=== PATIENT | male | born 1930 | race Caucasian/White ===

== ENCOUNTER 2020-05-26 18:56 | Inpatient (IN) | payer OTHER ==
[2020-05-26] MEDS ORDERED: SODIUM CHLORIDE 0.9% 500 ML INFUS.BAG IV ONE (19:20)
[2020-05-26] MEDS ORDERED: ACETAMINOPHEN 1000 MG/100 ML BAG IVPB ONE (19:20)
[2020-05-26] MEDS ORDERED: ACETAMINOPHEN INJECTION 100 ML IVPB ONE (19:40)
[2020-05-26 19:57] LABS: VENOUS BASE EXCESS 0.3 mmol/L (-2-2); VENOUS O2 SATURATION 88.5 % (70-80); VENOUS PCO2 33.7 mmHg (38-52); VENOUS PH 7.46 (7.310-7.410)
[2020-05-26 19:59] LABS: BASO % 0.3 % (0-2.0); EOS % 0.1 % (0-4.5); HEMATOCRIT 39.7 % (35.4-49); LYMPH % 17.5 % (8-40); MCH 28.8 pg (25.7-33.7); MCHC 32.7 g/dl (32.0-35.9); MEAN CELL VOLUME 88.1 fl (80-96); MEAN PLT VOLUME 9.9 fl (7.5-11.1); MONO % 10.6 % (3.8-10.2); NEUT % 71.5 % (42.8-82.8); PLATELET COUNT 133 K/MM3 (134-434); RBC 4.51 M/mm3 (4.00-5.60); WHITE BLOOD COUNT 5.2 K/mm3 (4.0-10.0)
[2020-05-26] MEDS ORDERED: CEFTRIAXONE 1 GM in DEXTROSE 5%-WATER - 100 ML IVPB ONE (19:59)
[2020-05-26] MEDS ORDERED: DEXAMETHASONE SOD PHOSPHATE 10 MG/1 ML VIAL IVPUSH ONE (19:59)
[2020-05-26] MEDS ORDERED: AZITHROMYCIN IVPB 500 MG in DEXTROSE 5%-WATER - 250 ML IVPB ONE (19:59)
[2020-05-26 20:06] LABS: INR 1.47 (0.83-1.09); PROTHROMBIN TIME (PATIENT) 17.9 SEC (9.7-13.0)
[2020-05-26] MEDS ORDERED: CEFTRIAXONE 1 GM/50 ML BAG ONE (20:08)
[2020-05-26] MEDS ORDERED: DEXAMETHASONE SOD PHOSPHATE 10 MG/1 ML VIAL ONE (20:08)
[2020-05-26 20:09] LABS: ACTIVATED PTT 36.5 SECONDS (25.2-36.5)
[2020-05-26] MEDS ORDERED: METOCLOPRAMIDE HCL INJECTION 10 MG/2 ML VIAL IVPUSH ONE (20:24)
[2020-05-26] MEDS ORDERED: dilTIAZem HCL 50 MG/10 ML - 10 ML VIAL IVPUSH ONE (20:24)
[2020-05-26 20:26] LABS: CALCIUM 7.7 mg/dL (8.5-10.1)
[2020-05-26 20:27] LABS: ALBUMIN 2.8 g/dl (3.4-5.0); BLOOD UREA NITROGEN 31.2 mg/dL (7-18)
[2020-05-26 20:29] LABS: BILIRUBIN,DIRECT 0.1 mg/dL (0.0-0.2); CREATININE 1.7 mg/dL (0.55-1.3)
[2020-05-26 20:31] LABS: BILIRUBIN,TOTAL 0.5 mg/dL (0.2-1)
[2020-05-26 20:32] LABS: TOT PROT 6.8 g/dl (6.4-8.2)
[2020-05-26] MEDS ORDERED: METOCLOPRAMIDE HCL INJECTION 10 MG/2 ML VIAL ONE (20:33)
[2020-05-26] MEDS ORDERED: dilTIAZem HCL 125 MG/25 ML - 25 ML VIAL ONE (20:33)
[2020-05-26] MEDS ORDERED: AZITHROMYCIN IVPB 500 MG/250 ML BAG IVPB ONE (20:55)
[2020-05-26 21:41] LABS: EPI CELLS 7 /uL (0-25.1); HYALINE CASTS 4 /uL (0-3.1); URINE APPEARANCE CLOUDY; URINE BACTERIA 15 /uL (0-1359); URINE BILIRUBIN NEGATIVE (NEGATIVE); URINE COLOR YELLOW; URINE GLUCOSE (UA) 2+ (NEGATIVE); URINE KETONE TRACE (NEGATIVE); URINE LEUK ESTERASE NEGATIVE (NEGATIVE); URINE NITRITE NEGATIVE (NEGATIVE); URINE PROTEIN 2+ (NEGATIVE); URINE RBC 12 /uL (0-23.9); URINE UROBILINOGEN 0.2 mg/dL (0.2-1.0); URINE WBC 6 /uL (0-25.8)
[2020-05-26 22:42] LABS: BLOOD UREA NITROGEN 33.1 mg/dL (7-18); CALCIUM 7.6 mg/dL (8.5-10.1)
[2020-05-26 22:46] LABS: CREATININE 1.6 mg/dL (0.55-1.3)
[2020-05-27] MEDS ORDERED: SODIUM CHLORIDE 500 ML IV STA (00:53)
[2020-05-27] MEDS: SODIUM CHLORIDE 1,000 ML IV SCH ×2 (02:42→13:02)
[2020-05-27 03:23] VITALS: BMI 24.7
[2020-05-27] MEDS: METOPROLOL TARTRATE 5 MG/5 ML VIAL IVPUSH PRN (04:17)
[2020-05-27] MEDS: INSULIN SLIDING SCALE (NOVOLOG) 1 VIAL SQ SCH ×4 (06:36→22:15)
[2020-05-27 06:44] LABS: BASO % 0.1 % (0-2.0); HEMOGLOBIN 14.5 GM/dL (11.7-16.9); LYMPH % 21.9 % (8-40); MCH 29.3 pg (25.7-33.7); MCHC 32.9 g/dl (32.0-35.9); MEAN PLT VOLUME 9.6 fl (7.5-11.1); PLATELET COUNT 141 K/MM3 (134-434); RBC 4.95 M/mm3 (4.00-5.60); RDW 14.3 % (11.9-15.9); WHITE BLOOD COUNT 4.5 K/mm3 (4.0-10.0)
[2020-05-27 06:57] LABS: CALCIUM 8.2 mg/dL (8.5-10.1)
[2020-05-27 06:58] LABS: ALBUMIN 2.8 g/dl (3.4-5.0); BLOOD UREA NITROGEN 34.2 mg/dL (7-18); MAGNESIUM 1.9 mg/dL (1.8-2.4)
[2020-05-27 07:01] LABS: CREATININE 1.6 mg/dL (0.55-1.3); PHOSPHOROUS 5.2 mg/dL (2.5-4.9)
[2020-05-27 07:03] LABS: BILIRUBIN,TOTAL 0.6 mg/dL (0.2-1)
[2020-05-27] MEDS ORDERED: CALCIUM GLUCONATE 10% - 1,000 MG/10 ML VIAL IVPB ONE (08:33)
[2020-05-27] MEDS ORDERED: INSULIN REGULAR HUMAN 100 UNITS/ML *VIAL IVPUSH ONE (08:34)
[2020-05-27] MEDS ORDERED: DEXTROSE 50%-WATER - 25 GM/50 ML VIAL IVPUSH ONE (08:34)
[2020-05-27] MEDS ORDERED: DEXTROSE 5%-WATER - 50 ML IVPB ONE (09:40)
[2020-05-27] MEDS ORDERED: cefTRIAXone SODIUM 1 GM VIAL ONE (09:40)
[2020-05-27] MEDS ORDERED: DEXTROSE 50%-WATER - 25 GM/50 ML VIAL ONE (09:47)
[2020-05-27] MEDS ORDERED: DEXAMETHASONE SOD PHOSPHATE 4 MG/1 ML VIAL IVPUSH ONE (10:00)
[2020-05-27] MEDS: CHOLECALCIFEROL (VIT D3) 5000 UNITS (125 MCG) CAP PO SCH (10:10)
[2020-05-27] MEDS: APIXABAN 2.5 MG TABLET PO SCH ×2 (10:11→22:07)
[2020-05-27] MEDS: ZINC SULFATE 220 MG CAPSULE (FP) PO SCH ×2 (10:11→22:08)
[2020-05-27] MEDS: ASCORBIC ACID 500 MG TABLET (FP) PO SCH ×2 (10:11→22:07)
[2020-05-27] MEDS: CEFTRIAXONE 1 GM in DEXTROSE 5%-WATER - 50 ML IVPB SCH (10:14)
[2020-05-27] MEDS ORDERED: NITROGLYCERIN SUBLINGUAL 1/150 0.4 MG TAB SL PRN (11:46)
[2020-05-27] MEDS: FAMOTIDINE 20 MG/50 ML IVPB 20 MG/50 ML MG IVPB SCH (12:06)
[2020-05-27] MEDS: amLODIPine BESYLATE 5 MG TABLET (FP) PO SCH (12:21)
[2020-05-27] MEDS: metoPROLOL SUCCINATE 25 MG TAB.SR.24H (FP) PO SCH (12:21)
[2020-05-27] MEDS: AZITHROMYCIN IVPB 250 MG in DEXTROSE 5%-WATER - 250 ML IVPB SCH (13:05)
[2020-05-27] MEDS ORDERED: PT OWN MED DRAWER 7, Y5N ONE (14:44)
[2020-05-27] MEDS: SODIUM ZIRCONIUM CYCLOSILICATE (LOKELMA) 5 GM PACKET PO SCH (14:51)
[2020-05-27] MEDS ORDERED: REMDESIVIR 200 MG in SODIUM CHLORIDE 210 ML IVPB ONE (17:00)
[2020-05-27 19:47] LABS: CALCIUM 7.8 mg/dL (8.5-10.1)
[2020-05-27 19:48] LABS: BLOOD UREA NITROGEN 37.6 mg/dL (7-18)
[2020-05-27 19:51] LABS: CREATININE 1.4 mg/dL (0.55-1.3)
[2020-05-27] MEDS: ATORVASTATIN CA 40 MG TABLET (FP) PO SCH (22:08)
[2020-05-28] MEDS: INSULIN SLIDING SCALE (NOVOLOG) 1 VIAL SQ SCH ×4 (06:40→22:19)
[2020-05-28] MEDS: SODIUM CHLORIDE 1,000 ML IV SCH (06:40)
[2020-05-28 08:41] LABS: BASO % 0.1 % (0-2.0); HEMATOCRIT 40.4 % (35.4-49); HEMOGLOBIN 13.1 GM/dL (11.7-16.9); LYMPH % 6.1 % (8-40); MCH 28.6 pg (25.7-33.7); MCHC 32.4 g/dl (32.0-35.9); MEAN CELL VOLUME 88.4 fl (80-96); MONO % 5.1 % (3.8-10.2); NEUT % 88.7 % (42.8-82.8); PLATELET COUNT 158 K/MM3 (134-434); RBC 4.57 M/mm3 (4.00-5.60); RDW 14.1 % (11.9-15.9); WHITE BLOOD COUNT 12.9 K/mm3 (4.0-10.0)
[2020-05-28 08:43] LABS: CALCIUM 8.4 mg/dL (8.5-10.1)
[2020-05-28 08:44] LABS: ALBUMIN 2.7 g/dl (3.4-5.0); BLOOD UREA NITROGEN 34.2 mg/dL (7-18)
[2020-05-28 08:48] LABS: CREATININE 1.4 mg/dL (0.55-1.3); PHOSPHOROUS 3.6 mg/dL (2.5-4.9)
[2020-05-28 08:49] LABS: BILIRUBIN,TOTAL 0.3 mg/dL (0.2-1); TOT PROT 6.9 g/dl (6.4-8.2)
[2020-05-28] MEDS ORDERED: DEXTROSE 5%-WATER - 50 ML IVPB ONE (10:08)
[2020-05-28] MEDS ORDERED: cefTRIAXone SODIUM 1 GM VIAL ONE (10:08)
[2020-05-28] MEDS ORDERED: PT OWN MED DRAWER 7, Y5N ONE (10:08)
[2020-05-28] MEDS: ASPIRIN 81 MG CHEWABLE TABLETS PO SCH (10:30)
[2020-05-28] MEDS: amLODIPine BESYLATE 5 MG TABLET (FP) PO SCH (10:30)
[2020-05-28] MEDS: CEFTRIAXONE 1 GM in DEXTROSE 5%-WATER - 50 ML IVPB SCH (10:30)
[2020-05-28] MEDS: ZINC SULFATE 220 MG CAPSULE (FP) PO SCH ×2 (10:30→22:19)
[2020-05-28] MEDS: FAMOTIDINE 20 MG/50 ML IVPB 20 MG/50 ML MG IVPB SCH (10:30)
[2020-05-28] MEDS: DEXAMETHASONE SOD PHOSPHATE 4 MG/1 ML VIAL IVPUSH SCH (10:30)
[2020-05-28] MEDS: ASCORBIC ACID 500 MG TABLET (FP) PO SCH ×2 (10:30→22:19)
[2020-05-28] MEDS: APIXABAN 2.5 MG TABLET PO SCH ×2 (10:30→22:19)
[2020-05-28] MEDS: CHOLECALCIFEROL (VIT D3) 5000 UNITS (125 MCG) CAP PO SCH (10:30)
[2020-05-28] MEDS: SODIUM ZIRCONIUM CYCLOSILICATE (LOKELMA) 5 GM PACKET PO SCH (10:30)
[2020-05-28] MEDS: metoPROLOL SUCCINATE 25 MG TAB.SR.24H (FP) PO SCH (10:30)
[2020-05-28] MEDS: AZITHROMYCIN IVPB 250 MG in DEXTROSE 5%-WATER - 250 ML IVPB SCH (12:00)
[2020-05-28] MEDS: REMDESIVIR 100 MG in SODIUM CHLORIDE 230 ML IVPB SCH (16:43)
[2020-05-28] MEDS: ATORVASTATIN CA 40 MG TABLET (FP) PO SCH (22:19)
[2020-05-29 06:34] LABS: HEMATOCRIT 43.6 % (35.4-49); HEMOGLOBIN 14.2 GM/dL (11.7-16.9); LYMPH % 5.2 % (8-40); MCH 28.8 pg (25.7-33.7); MCHC 32.4 g/dl (32.0-35.9); MEAN CELL VOLUME 88.7 fl (80-96); MONO % 6.5 % (3.8-10.2); NEUT % 88.3 % (42.8-82.8); PLATELET COUNT 199 K/MM3 (134-434); RBC 4.92 M/mm3 (4.00-5.60); RDW 14.1 % (11.9-15.9); WHITE BLOOD COUNT 14.5 K/mm3 (4.0-10.0)
[2020-05-29 06:55] LABS: CALCIUM 8.4 mg/dL (8.5-10.1)
[2020-05-29 06:57] LABS: BLOOD UREA NITROGEN 42.6 mg/dL (7-18)
[2020-05-29] MEDS: INSULIN SLIDING SCALE (NOVOLOG) 1 VIAL SQ SCH ×4 (06:59→22:59)
[2020-05-29 07:01] LABS: CREATININE 1.4 mg/dL (0.55-1.3)
[2020-05-29] MEDS ORDERED: ALBUTEROL SO4 HFA INHALER IH PRN (10:40)
[2020-05-29] MEDS ORDERED: APIXABAN 2.5 MG TABLET PO SCH ×2 (10:48→22:00)
[2020-05-29] MEDS: ASCORBIC ACID 500 MG TABLET (FP) PO SCH ×2 (10:50→22:58)
[2020-05-29] MEDS: amLODIPine BESYLATE 5 MG TABLET (FP) PO SCH (10:50)
[2020-05-29] MEDS: ZINC SULFATE 220 MG CAPSULE (FP) PO SCH ×2 (10:50→22:58)
[2020-05-29] MEDS: metoPROLOL SUCCINATE 25 MG TAB.SR.24H (FP) PO SCH (10:51)
[2020-05-29] MEDS: ASPIRIN 81 MG CHEWABLE TABLETS PO SCH (10:51)
[2020-05-29] MEDS: APIXABAN 2.5 MG TABLET PO SCH (10:51)
[2020-05-29] MEDS ORDERED: PT OWN MED DRAWER 7, Y5N ONE (11:02)
[2020-05-29] MEDS: CHOLECALCIFEROL (VIT D3) 5000 UNITS (125 MCG) CAP PO SCH (11:02)
[2020-05-29] MEDS: CEFTRIAXONE 1 GM in DEXTROSE 5%-WATER - 50 ML IVPB SCH (11:30)
[2020-05-29] MEDS: DEXAMETHASONE SOD PHOSPHATE 4 MG/1 ML VIAL IVPUSH SCH (11:30)
[2020-05-29] MEDS: SODIUM CHLORIDE 1,000 ML IV SCH (11:30)
[2020-05-29] MEDS ORDERED: DEXTROSE 5%-WATER - 50 ML IVPB ONE (11:54)
[2020-05-29] MEDS ORDERED: cefTRIAXone SODIUM 1 GM VIAL ONE (11:54)
[2020-05-29] MEDS: FAMOTIDINE 20 MG/50 ML IVPB 20 MG/50 ML MG IVPB SCH (11:58)
[2020-05-29] MEDS: AZITHROMYCIN IVPB 250 MG in DEXTROSE 5%-WATER - 250 ML IVPB SCH (13:19)
[2020-05-29] MEDS: SODIUM ZIRCONIUM CYCLOSILICATE (LOKELMA) 5 GM PACKET PO SCH (13:19)
[2020-05-29] MEDS: REMDESIVIR 100 MG in SODIUM CHLORIDE 230 ML IVPB SCH (16:57)
[2020-05-29] MEDS ORDERED: DEXAMETHASONE SOD PHOSPHATE 4 MG/1 ML VIAL IVPUSH ONE (20:00)
[2020-05-29] MEDS ORDERED: MELATONIN 5 MG TABLETS PO ONE (22:00)
[2020-05-29] MEDS: ATORVASTATIN CA 40 MG TABLET (FP) PO SCH (22:58)
[2020-05-29] MEDS: APIXABAN 5 MG TABLET PO SCH (22:58)
[2020-05-30] MEDS: METOPROLOL TARTRATE 5 MG/5 ML VIAL IVPUSH PRN ×3 (00:49→16:11)
[2020-05-30] MEDS ORDERED: METOPROLOL TARTRATE 5 MG/5 ML VIAL IVPUSH ONE (01:24)
[2020-05-30] MEDS ORDERED: LORazepam 2 MG/ML SDV VIAL IVPUSH ONE (01:25)
[2020-05-30 06:43] LABS: BASO % 0.1 % (0-2.0); HEMATOCRIT 40.7 % (35.4-49); HEMOGLOBIN 13.2 GM/dL (11.7-16.9); MCH 28.8 pg (25.7-33.7); MCHC 32.5 g/dl (32.0-35.9); MEAN CELL VOLUME 88.6 fl (80-96); MEAN PLT VOLUME 9.4 fl (7.5-11.1); MONO % 8.1 % (3.8-10.2); NEUT % 88.8 % (42.8-82.8); PLATELET COUNT 206 K/MM3 (134-434); RBC 4.59 M/mm3 (4.00-5.60); RDW 14.4 % (11.9-15.9); WHITE BLOOD COUNT 16.3 K/mm3 (4.0-10.0)
[2020-05-30 07:05] LABS: BLOOD UREA NITROGEN 38.4 mg/dL (7-18); CALCIUM 8.2 mg/dL (8.5-10.1); MAGNESIUM 2.4 mg/dL (1.8-2.4)
[2020-05-30 07:08] LABS: PHOSPHOROUS 3.2 mg/dL (2.5-4.9)
[2020-05-30 07:09] LABS: CREATININE 1.2 mg/dL (0.55-1.3)
[2020-05-30] MEDS: INSULIN SLIDING SCALE (NOVOLOG) 1 VIAL SQ SCH ×3 (08:04→23:37)
[2020-05-30] MEDS ORDERED: cefTRIAXone SODIUM 1 GM VIAL ONE (09:50)
[2020-05-30] MEDS ORDERED: DEXTROSE 5%-WATER - 50 ML IVPB ONE (09:50)
[2020-05-30] MEDS: DEXAMETHASONE SOD PHOSPHATE 4 MG/1 ML VIAL IVPUSH SCH (10:45)
[2020-05-30] MEDS: FAMOTIDINE 20 MG/50 ML IVPB 20 MG/50 ML MG IVPB SCH (10:45)
[2020-05-30] MEDS: AZITHROMYCIN IVPB 250 MG in DEXTROSE 5%-WATER - 250 ML IVPB SCH (10:45)
[2020-05-30] MEDS: CEFTRIAXONE 1 GM in DEXTROSE 5%-WATER - 50 ML IVPB SCH (10:45)
[2020-05-30] MEDS: ASPIRIN 81 MG CHEWABLE TABLETS PO SCH (12:11)
[2020-05-30] MEDS: amLODIPine BESYLATE 5 MG TABLET (FP) PO SCH (12:12)
[2020-05-30] MEDS: APIXABAN 5 MG TABLET PO SCH ×2 (12:12→22:45)
[2020-05-30] MEDS: ZINC SULFATE 220 MG CAPSULE (FP) PO SCH ×2 (12:12→22:45)
[2020-05-30] MEDS: ASCORBIC ACID 500 MG TABLET (FP) PO SCH ×2 (12:12→22:45)
[2020-05-30] MEDS: metoPROLOL SUCCINATE 25 MG TAB.SR.24H (FP) PO SCH (12:12)
[2020-05-30] MEDS: CHOLECALCIFEROL (VIT D3) 5000 UNITS (125 MCG) CAP PO SCH (12:13)
[2020-05-30] MEDS: SODIUM CHLORIDE 1,000 ML IV SCH (14:12)
[2020-05-30] MEDS: morphine SULFATE 4 MG/ML VIAL IVPUSH SCH ×2 (16:40→22:50)
[2020-05-30] MEDS: REMDESIVIR 100 MG in SODIUM CHLORIDE 230 ML IVPB SCH (16:40)
[2020-05-30] MEDS ORDERED: FUROSEMIDE 40 MG/4 ML INJECTABLE VIAL IVPUSH ONE (18:01)
[2020-05-30] MEDS: ATORVASTATIN CA 40 MG TABLET (FP) PO SCH (22:45)
[2020-05-31 02:27] VITALS: BP 89/47; PULSE 95; TEMP 98
== END 2020-05-31 05:46 | disposition expired | DRG 177 ==
LOC: JER 18:56 → JERBED 19:24 → J4S 23:35
PROVIDERS: ADMIT Hospitalist; ATTEND Internal Medicine
PROC: 8E0ZXY6 Isolation (ICD-10-PCS; 2020-05-26)
PROC: XW13325 Transfusion of Convalescent Plasma (Nonautologous) into Peripheral Vein, Percutaneous Approach, New Technology Group 5 (ICD-10-PCS; principal; 2020-05-27)
PROC: XW033E5 Introduction of Remdesivir Anti-infective into Peripheral Vein, Percutaneous Approach, New Technology Group 5 (ICD-10-PCS; 2020-05-27)
DX: U07.1 COVID-19 (principal); J12.89 Other viral pneumonia; J96.01 Acute respiratory failure with hypoxia; G93.41 Metabolic encephalopathy; I50.21 Acute systolic (congestive) heart failure; N17.9 Acute kidney failure, unspecified; I24.8 Other forms of acute ischemic heart disease; R41.82 Altered mental status, unspecified; I25.10 Atherosclerotic heart disease of native coronary artery without angina pectoris; I48.91 Unspecified atrial fibrillation; E78.5 Hyperlipidemia, unspecified; E11.9 Type 2 diabetes mellitus without complications; E87.5 Hyperkalemia; I11.0 Hypertensive heart disease with heart failure; R00.0 Tachycardia, unspecified
CPT/HCPCS: 36415; 36430; 70450-TC; 71045-TC-FY; 71250-TC; 76775-TC; 80048; 80053; 81003; 82248; 82550; 82553; 82565; 82728; 82803; 82962; 83605; 83615; 83735; 84100; 84484; 84540; 85025; 85379; 85384; 85610; 85730; 86140; 86850; 86900; 86901; 87040; 87086; 87804; 87899; 93005; 93010; 93306-TC; 94660; 97116-GP; 97161-GP; 99285-25; C9399; C9803; J0131; J1100; P9017; U0003